=== PATIENT | female | born 1950 | race American Indian/Alaskan Native ===

== ENCOUNTER 2022-12-05 19:13 | Emergency (ER) | payer OTHER ==
[~2022-12-05] VITALS: Ht 162.6 cm; Wt 85.3 kg
[2022-12-05 19:54] LABS: PLATELET COUNT 210 K/uL (152-353)
[2022-12-05 20:53] VITALS: BP 128/69; TEMP 98.1
[2022-12-06] MEDS ORDERED: ASPIRIN81 M2 PO (08:41)
[2022-12-06] MEDS ORDERED: QUET25TA2 PO (08:42)
[2022-12-06] MEDS ORDERED: NIFE60TA5 PO (08:42)
[2022-12-06] MEDS ORDERED: QUETIAPINE50 MG PO (08:43)
[2022-12-06] MEDS ORDERED: DOK100 MG PO (08:44)
[2022-12-06] MEDS ORDERED: MEMANTINE HCL PO (08:45)
[2022-12-06] MEDS ORDERED: ARTIFICIA7 OPTH (08:48)
== END 2022-12-05 20:53 | disposition still patient (30) ==
LOC: ED 19:13
PROVIDERS: Emergency Medicine
DX: F03.911 Unspecified dementia, unspecified severity, with agitation (principal); Z11.52 Encounter for screening for COVID-19; Z04.6 Encounter for general psychiatric examination, requested by authority
CPT/HCPCS: 80053; 85027; 87635; 93005; 99283; U0003